=== PATIENT | male | born 1985 | race Caucasian/White ===

== ENCOUNTER 2021-02-12 14:58 | Inpatient (IN) | payer OTHER ==
[2021-02-12] MEDS ORDERED: ONDANSETRON *ODT* 4 MG TABLET SL PRN (16:06)
[2021-02-12] MEDS ORDERED: MAG HYDROX/AL HYDROX/SIMETH 30 ML UNIT-DOSE CUP PO PRN (16:06)
[2021-02-12] MEDS ORDERED: NICOTINE 10 MG CARTRIDGE (INHALER) IH PRN (16:06)
[2021-02-12] MEDS ORDERED: MAGNESIUM HYDROX 2400MG/30ML ORAL SUSPENSION 30 ML CUP PO PRN (16:06)
[2021-02-12] MEDS ORDERED: NICOTINE POLACRILEX 4 MG GUM BUC PRN (16:06)
[2021-02-12] MEDS ORDERED: MENTHOL/PHENOL 1 EACH UD MM PRN (16:06)
[2021-02-12] MEDS ORDERED: MAGNESIUM CITRATE 300 ML BOTTLE PO PRN (16:06)
[2021-02-12] MEDS ORDERED: ACETAMINOPHEN 325 MG TABLET (FP) PO PRN ×2 (16:06)
[2021-02-12] MEDS ORDERED: IBUPROFEN 400 MG TABLET (FP) PO PRN (16:06)
[2021-02-12] MEDS ORDERED: BISMUTH SUBSALICYLATE 524 MG/30 ML PO PRN (16:06)
[2021-02-12 16:18] VITALS: BMI 23.5
[2021-02-12] MEDS ORDERED: ONDANSETRON *ODT* 4 MG TABLET ONE (21:26)
[2021-02-12] MEDS ORDERED: diazePAM 5 MG TABLET ONE (21:26)
[2021-02-12] MEDS ORDERED: hydrOXYzine PAMOATE 25 MG CAPSULE (FP) PO ONE (21:26)
[2021-02-12] MEDS: diazePAM 5 MG TABLET PO SCH ×2 (21:28→22:34)
[2021-02-12] MEDS: hydrOXYzine PAMOATE 25 MG CAPSULE (FP) PO SCH ×2 (21:31→22:31)
[2021-02-12] MEDS: PRENATAL VITAMINS W/ FOLIC ACID TABLET (FP) PO SCH (21:32)
[2021-02-12] MEDS: MELATONIN 5 MG TABLETS PO SCH (22:30)
[2021-02-12] MEDS: THIAMINE HCL 100 MG TABLET (FP) PO SCH (22:31)
[2021-02-12] MEDS: NICOTINE 14 MG/24 HOURS TOPICAL PATCH TD SCH (22:31)
[2021-02-13] MEDS: diazePAM 5 MG TABLET PO PRN (03:16)
[2021-02-13] MEDS: hydrOXYzine PAMOATE 25 MG CAPSULE (FP) PO SCH ×5 (06:09→22:15)
[2021-02-13] MEDS: diazePAM 5 MG TABLET PO SCH ×4 (06:09→22:15)
[2021-02-13] MEDS: PRENATAL VITAMINS W/ FOLIC ACID TABLET (FP) PO SCH (10:41)
[2021-02-13] MEDS: METHOCARBAMOL 500 MG TABLET PO PRN (10:43)
[2021-02-13] MEDS: NICOTINE 14 MG/24 HOURS TOPICAL PATCH TD SCH (10:44)
[2021-02-13 11:42] LABS: HEMATOCRIT 40.5 % (35.4-49); HEMOGLOBIN 13.9 GM/dL (11.7-16.9); MCH 32.3 pg (25.7-33.7); MCHC 34.3 g/dl (32.0-35.9); MEAN CELL VOLUME 94.1 fl (80-96); MEAN PLT VOLUME 7.5 fl (7.5-11.1); PLATELET COUNT 151 10^3/uL (134-434); RDW 13.4 % (11.9-15.9); WHITE BLOOD COUNT 4.4 K/mm3 (4.0-10.0)
[2021-02-13 11:47] LABS: ALBUMIN 3.3 g/dl (3.4-5.0); BILIRUBIN,TOTAL 1.1 mg/dL (0.2-1); BLOOD UREA NITROGEN 6.7 mg/dL (7-18); TOT PROT 6.6 g/dl (6.4-8.2)
[2021-02-13 11:48] LABS: CALCIUM 8.6 mg/dL (8.5-10.1)
[2021-02-13 11:50] LABS: CREATININE 0.7 mg/dL (0.55-1.3)
[2021-02-13] MEDS ORDERED: FLU VACC QS2021-22(6MOS UP)/PF 60 MCG/0.5 ML SYRINGE IM ONE (13:00)
[2021-02-13] MEDS: THIAMINE HCL 100 MG TABLET (FP) PO SCH (22:14)
[2021-02-13] MEDS: MELATONIN 5 MG TABLETS PO SCH (22:15)
[2021-02-14] MEDS: diazePAM 5 MG TABLET PO PRN (02:51)
[2021-02-14] MEDS: METHOCARBAMOL 500 MG TABLET PO PRN (04:59)
[2021-02-14] MEDS: hydrOXYzine PAMOATE 25 MG CAPSULE (FP) PO SCH ×2 (04:59→10:12)
[2021-02-14] MEDS ORDERED: diazePAM 5 MG TABLET PO SCH (06:00)
[2021-02-14 09:25] VITALS: BP 138/63; PULSE 105; TEMP 98.4
[2021-02-14] MEDS: PRENATAL VITAMINS W/ FOLIC ACID TABLET (FP) PO SCH (10:12)
[2021-02-14] MEDS: NICOTINE 14 MG/24 HOURS TOPICAL PATCH TD SCH (10:13)
[2021-02-15] MEDS ORDERED: diazePAM 5 MG TABLET PO SCH (06:00)
[2021-02-16] MEDS ORDERED: diazePAM 5 MG TABLET PO ONE (06:00)
== END 2021-02-14 11:40 | disposition left against medical advice (07) | DRG 770 ==
LOC: YASAS 14:58 → Y6N 16:01 → UNDOADMIN 16:01 → Y6N 21:22
PROVIDERS: ADMIT Allergy & Immunology; ATTEND Allergy & Immunology
PROC: HZ2ZZZZ Detoxification Services for Substance Abuse Treatment (ICD-10-PCS; principal; 2021-02-12)
DX: F10.230 Alcohol dependence with withdrawal, uncomplicated (principal); F17.210 Nicotine dependence, cigarettes, uncomplicated; E80.6 Other disorders of bilirubin metabolism; R74.01 Elevation of levels of liver transaminase levels; R94.5 Abnormal results of liver function studies; Z86.69 Personal history of other diseases of the nervous system and sense organs; Z59.00 Homelessness unspecified
CPT/HCPCS: 36415; 80053; 85027; 86780; 90686; C9803; G0008; Q0162; U0003; U0005